=== PATIENT | female | born 1970 | race Asian ===

== ENCOUNTER → 2022-09-07 | Outpatient (CLI) | payer BC, OTHER ==
[~2022-09-07] MED LIST: IOHEXOL 350 MG/ML 100ML INFUS..BTL IV ONE
== END | disposition home or self-care (01) ==
LOC: CANSCHCLI → RAH 08:50
PROVIDERS: ATTEND Internal Medicine Cardiovascular Disease
DX: I20.9 Angina pectoris, unspecified (principal); R00.2 Palpitations
CPT/HCPCS: 75574; Q9967

== ENCOUNTER → 2024-05-26 | Outpatient (CLI) | payer SELFPAY ==
--- NOTE | 2024-05-26 14:41 | HMCIMG ---
[employer] 1 VW HISTORY: Positive TB skin test COMPARISON: None FINDINGS: A frontal projection of the chest was obtained. No acute pulmonary infiltrates is seen. The heart is normal in size. No radiographic evidence of acute pulmonary tuberculosis is seen. Aortic calcifications are seen. IMPRESSION: 1. No acute pulmonary infiltrate is seen.
== END | disposition home or self-care (01) ==
LOC: RAH 13:27
PROVIDERS: ATTEND Hospitalist
DX: R76.11 Nonspecific reaction to tuberculin skin test without active tuberculosis (principal)